=== PATIENT | female | born 1990 | race Caucasian/White ===

== ENCOUNTER 2020-01-05 07:49 | Day surgery (SDC) | payer OTHER ==
[~2020-01-05 07:49] MED LIST: Buffered Lidocaine 1% SYRIN 1 ml INTRADERM ONE; DOXYcycline IV 200 MG in NS 250 mL *Pre-Op OBGYN IVPB ONE; DiMENhydriNATE IV 50 mg/ml 1 ml VIAL IV PUSH PRN; Famotidine IV 10 MG/ML 2 ml VIAL (20 mg) IV ONE; HYDROmorphone 1 MG/1 ML SYRINGE IV PRN; Lactated Ringers 1000 ml BAG 1,000 ML IV SCH; Naloxone 0.4 mg VIAL 0.4 mg/ml 1 ml VIAL IV PRN; Ondansetron ODT 4 mg TAB 4 MG TAB PO ONE; Prochlorperazine 5 mg/ml 2 ml VIAL (10 mg) IV PRN; fentaNYL 100 mcg/2 ml 50 MCG/ML VIAL IV PRN
[2020-01-05] MEDS ORDERED: Ondansetron ODT 4 mg TAB 4 MG TAB ONE (08:08)
[2020-01-05] MEDS ORDERED: Buffered Lidocaine 1% SYRIN 1 ml INTRADERM ONE (08:09)
[2020-01-05] MEDS ORDERED: Famotidine IV 10 MG/ML 2 ml VIAL (20 mg) ONE (08:09)
[2020-01-05] MEDS ORDERED: fentaNYL 100 mcg/2 ml 50 MCG/ML VIAL ONE (08:31)
[2020-01-05] MEDS ORDERED: Midazolam 5 mg/5 ml VIAL 1 mg/ml 5 ml VIAL (5 mg) ONE (08:32)
[2020-01-05] MEDS ORDERED: Ketamine HCL 50 mg/ml 10 ml VIAL (500 MG) ONE (08:32)
[2020-01-05] MEDS ORDERED: EPHEDrine (Pressors) 50 MG/ML VIAL ONE (08:36)
[2020-01-05] MEDS ORDERED: Phenylephrine 40 mcg/mL 10mL (400mcg) SYRINGE ONE (08:36)
[2020-01-05] MEDS ORDERED: Acetaminophen IV 1 GM/100ML 100 ML ONE (08:36)
[2020-01-05 09:03] LABS: ABS Lymphocytes 1.6 10^3/ul (1.0-4.8); ABS Monocytes 0.4 10^3/ul (0-0.8); Eosinophil % 0.4 %; Hematocrit 35 % (35-47); Hemoglobin 12.3 g/dL (12.0-16.0); Lymphocyte % 16.6 %; Mean Corpuscular HGB Conc 35 g/dL (31-36); Mean Corpuscular Hemoglobin 33 pg (27-31); Mean Corpuscular Volume 95 fL (80-97); Mean Platelet Volume 8.9 fL (7.4-10.4); Nucleated Red Blood Cells % 0.1; Platelet Count 235 10^3/uL (150-450); Red Blood Count 3.68 10^6 /uL (3.70-4.87); Red Cell Distribution Width 13 % (10-15); White Blood Count 9.4 10^3/uL (3.5-10.8)
[2020-01-05] MEDS ORDERED: ROPIVACAINE 5 MG/ML 30 ML BTL (0.5%) ONE (09:25)
[2020-01-05] MEDS ORDERED: Lidocaine 1% VIAL 10 MG/ML VIAL ONE (09:25)
[2020-01-05] MEDS ORDERED: Propofol 10 MG/ML 20 ML BTL ONE (09:56)
[2020-01-05] MEDS ORDERED: Lidocaine 2% PF 5 ML VIAL ONE (10:00)
[2020-01-05] MEDS ORDERED: oxyCODONE/Acetamin 5/325 mg TAB PO PRN (10:32)
[2020-01-05] MEDS ORDERED: RHO D Immune Globulin (HUMAN) 300 MCG = 1,500 I.U. INJ IM ONE (11:00)
[2020-01-05 14:04] VITALS: BP 98/68
[2020-01-08] MEDS ORDERED: Scopolamine PATCH Remove NOTE PATCH OFF ONE (05:55)
== END 2020-01-05 13:05 | disposition home or self-care (01) ==
LOC: OR 07:49
PROVIDERS: ATTEND Obstetrics & Gynecology